=== PATIENT | female | born 2000 | race American Indian/Alaskan Native ===

== ENCOUNTER 2020-07-19 05:23 | Emergency (ER) | payer SELFPAY ==
[2020-07-19 05:32] VITALS: BP 118/79
--- NOTE | 2020-07-19 05:44 | Emergency Department Report ---
ED General Adult HPI - General Chief complaint: Sore Throat Stated complaint: SORE THROAT Source: patient Mode of arrival: Ambulatory Limitations: No Limitations - History of Present Illness Initial comments: Patient is a 20 yo AA female with no past medical history who presents to the ED with c/o acute onset persistent sore throat, dysphagia and neck pain for the last 2 days. Patient states that she has not been able to eat or drink before of worsening pain. Patient denies dyspnea, nausea, vomiting nasal and sinus congestion, cough, abdominal pain, diarrhea or fever and chills or vision changes. MD Complaint: Sore throat; dysphagia; neck pain -: Sudden, days(s) (2) Location: mouth Radiation: non-radiation Severity scale (0 -10): 7 Quality: aching, sharp Consistency: constant Improves with: none Worsens with: none Associated Symptoms: denies other symptoms. denies: confusion, chest pain, cough, diaphoresis, fever/chills, headaches, loss of appetite, malaise, nausea/vomiting, rash, seizure, shortness of breath, syncope, weakness, other Treatments Prior to Arrival: none - Related Data Previous Rx's Medication Instructions Recorded Last Taken Type Azithromycin [Zithromax Z-LUIS F] 250 mg PO DAILY #6 tablet 07/19/20 Unknown Rx Ibuprofen [Motrin] 600 mg PO Q8H PRN #30 tablet 07/19/20 Unknown Rx Lidocaine Viscous 2% 10 ml PO Q6H PRN #120 ml 07/19/20 Unknown Rx predniSONE [Deltasone] 40 mg PO QDAY #10 tab 07/19/20 Unknown Rx ED Review of Systems ROS: Stated complaint: SORE THROAT Other details as noted in HPI Constitutional: denies: chills, fever Eyes: denies: eye pain, eye discharge, vision change ENT: throat pain, other (dysphagia). denies: ear pain Respiratory: denies: cough, shortness of breath, wheezing Cardiovascular: denies: chest pain, palpitations Endocrine: no symptoms reported Gastrointestinal: denies: abdominal pain, nausea, vomiting, diarrhea Genitourinary: denies: urgency, dysuria, discharge Musculoskeletal: denies: back pain, joint swelling, arthralgia Skin: denies: rash, lesions Neurological: denies: headache, weakness, paresthesias Psychiatric: denies: anxiety, depression Hematological/Lymphatic: denies: easy bleeding, easy bruising ED Past Medical Hx - Past Medical History Previous Medical History?: No - Surgical History Past Surgical History?: No - Social History Smoking Status: Current Every Day Smoker Substance Use Type: None - Medications Home Medications: Home Medications Medication Instructions Recorded Confirmed Last Taken Type Azithromycin [Zithromax Z-LUIS F] 250 mg PO DAILY #6 tablet 07/19/20 Unknown Rx Ibuprofen [Motrin] 600 mg PO Q8H PRN #30 tablet 07/19/20 Unknown Rx Lidocaine Viscous 2% 10 ml PO Q6H PRN #120 ml 07/19/20 Unknown Rx predniSONE [Deltasone] 40 mg PO QDAY #10 tab 07/19/20 Unknown Rx ED Physical Exam - General Limitations: No Limitations General appearance: alert, in no apparent distress - Head Head exam: Present: atraumatic, normocephalic, normal inspection - Eye Eye exam: Present: normal appearance, PERRL, EOMI Pupils: Present: normal accommodation - ENT ENT exam: Present: mucous membranes moist, TM's normal bilaterally, normal external ear exam - Neck Neck exam: Present: normal inspection, full ROM, lymphadenopathy (anterior cervical lymphadenopathy) - Respiratory Respiratory exam: Present: normal lung sounds bilaterally. Absent: respiratory distress, wheezes, rales, rhonchi, chest wall tenderness, accessory muscle use, decreased breath sounds - Cardiovascular Cardiovascular Exam: Present: normal rhythm, tachycardia, normal heart sounds. Absent: systolic murmur, diastolic murmur, rubs, gallop - GI/Abdominal GI/Abdominal exam: Present: soft, normal bowel sounds. Absent: tenderness, guarding, rebound, hyperactive bowel sounds, hypoactive bowel sounds, organomegaly - Extremities Exam Extremities exam: Present: normal inspection, full ROM, normal capillary refill - Back Exam Back exam: Present: normal inspection, full ROM. Absent: tenderness, CVA tenderness (R), CVA tenderness (L), muscle spasm, paraspinal tenderness, vertebral tenderness - Neurological Exam Neurological exam: Present: alert, oriented X3, CN II-XII intact, normal gait, reflexes normal - Psychiatric Psychiatric exam: Present: normal affect, normal mood - Skin Skin exam: Present: warm, dry, intact, normal color. Absent: rash ED Course Vital Signs 07/19/20 05:30 Temperature 99.0 F Pulse Rate 106 H Respiratory 18 Rate Blood Pressure 118/79 O2 Sat by Pulse 96 Oximetry ED Medical Decision Making - Medical Decision Making This is a 20 yo AA female with no past medical history who presents to the ED with c/o acute onset persistent sore throat, dysphagia and neck pain for the last 2 days. Patient states that she has not been able to eat or drink before of worsening pain. In the ED, patient is alert and oriented x3 and is not in distress. Patient is however tachycardic in triage but afebrile. Patient will discharge home on medications including antibiotics, pain medications and steroids. Prior to being discharged, patient tachycardia resolved and the final heart rate was 96 bpm. Patient was advised to follow-up with her primary care physician in 5 to 7 days for reevaluation or return to the ED immediately if symptoms get worse. - Differential Diagnosis Sterp pharyngitis; Mononucleosis; Chlamydia; Gonorrhea; Viral syndrome Critical care attestation.: If time is entered above; I have spent that time in minutes in the direct care of this critically ill patient, excluding procedure time. ED Disposition Clinical Impression: Acute pharyngitis, Acute bacterial tonsillitis, Anterior cervical lymphadenopathy Disposition: DC-01 TO HOME OR SELFCARE Is pt being admited?: No Does the pt Need Aspirin: No Condition: Stable Instructions: Upper Respiratory Infection, Adult, [id number], Tonsillitis, [id number], Sore Throat, [id number] Additional Instructions: Take medication with food, drink plenty of fluids and follow-up with your primary care physician in 7 to 10 days for reevaluation. Return to the ED immediately if symptoms get worse. Prescriptions: predniSONE [Deltasone] 40 mg PO QDAY #10 tab Lidocaine Viscous 2% 10 ml PO Q6H PRN #120 ml PRN Reason: Sore Throat Ibuprofen [Motrin] 600 mg PO Q8H PRN #30 tablet PRN Reason: Pain Azithromycin [Zithromax Z-LUIS F] 250 mg PO DAILY #6 tablet Referrals: [facility] [Other] - 3-5 Days [facility] [Provider Group] - 7-10 days Time of Disposition: 05:44 Print Language: SAO TOMEAN
== END 2020-07-19 06:05 | disposition home or self-care (01) ==
LOC: ED 05:23
DX: J02.9 Acute pharyngitis, unspecified (principal); R59.0 Localized enlarged lymph nodes; F17.200 Nicotine dependence, unspecified, uncomplicated; Z79.899 Other long term (current) drug therapy
CPT/HCPCS: 99282